=== PATIENT | female | born 1990 | race African-American/Black ===

== ENCOUNTER 2020-05-03 20:38 | Emergency (ER) | payer OTHER ==
[~2020-05-03] VITALS: Ht 160 cm; Wt 107.0 kg
[2020-05-03 20:44] VITALS: Ht 160 cm; Wt 107.0 kg
[2020-05-03 21:13] VITALS: BP 141/88
== END 2020-05-03 21:13 | disposition home or self-care (01) ==
LOC: ED 20:38
DX: S01.111A Laceration without foreign body of right eyelid and periocular area, initial encounter (principal); X58.XXXA Exposure to other specified factors, initial encounter; Y93.89 Activity, other specified; Y92.89 Other specified places as the place of occurrence of the external cause; Y99.8 Other external cause status